=== PATIENT | female | born 1955 | race Caucasian/White ===

== ENCOUNTER 2018-10-15 14:05 | Emergency (ER) | payer OTHER ==
[2018-10-15] MEDS ORDERED: IBUPROFEN 400 MG TABLET (FP) PO ONE ×2 (14:32→14:34)
[2018-10-15 14:33] VITALS: BP 174/86; PULSE 94; TEMP 99.1; BMI 26.2
--- NOTE | 2018-10-15 15:52 | PDOC ---
Documentation entered by Susana Julian SCRIBE, acting as scribe for Janine Dumont MD. Janine Dumont MD: This documentation has been prepared by the scribeEliel Natalie, SCRIBE, under my direction and personally reviewed by me in its entirety. I confirm that the documentation accurately reflects all work, treatment, procedures, and medical decision making performed by me. History of Present Illness - General Chief Complaint: Back Pain Stated Complaint: BACK PAIN Time Seen by Provider: 10/15/18 14:26 History Source: Patient, Family Exam Limitations: No Limitations - History of Present Illness Initial Comments: 10/15/18 14:36 The patient is a 62-year-old female, with no past medical history, who presents to the ED with 2 days of progressively worsening LT-sided lower back pain. The patient states that the pain began after picking up a child. She describes the pain as pinching in sensation with radiation down her LT leg. The patient decided to report to the ED today because her pain worsened and she is no longer able to apply pressure to her LT foot due to the pain. She has never experienced this pain in the past. She reports taking Motrin 400 mg at 8AM today with no relief of her symptoms. The patient denies any fevers, chills, nausea, vomiting, diarrhea, constipation , or abdominal pain. Denies any chest pain, palpitations, or shortness of breath. Denies any headache, weakness, dizziness, lightheadedness, or changes in strength or sensation. Allergies: NKA Past History - Past Medical History Allergies/Adverse Reactions: Allergies Allergy/AdvReac Type Severity Reaction Status Date / Time No Known Allergies Allergy Verified 10/15/18 14:13 Home Medications: Ambulatory Orders Ibuprofen [Advil -] 400 mg PO ONCE 10/15/18 Ibuprofen [Ibu] 800 mg PO TID PRN #30 tablet 10/15/18 COPD: No - Suicide/Smoking/Psychosocial Hx Smoking History: Never smoked Hx Alcohol Use: No Drug/Substance Use Hx: No Review of Systems - Review of Systems Able to Perform ROS?: Yes Comments:: 10/15/18 14:37 GENERAL/CONSTITUTIONAL: No fever or chills. No weakness. HEAD, EYES, EARS, NOSE AND THROAT: No change in vision. No ear pain or discharge. No sore throat. CARDIOVASCULAR: No chest pain or shortness of breath. RESPIRATORY: No cough, wheezing, or hemoptysis. GASTROINTESTINAL: No nausea, vomiting, diarrhea or constipation. GENITOURINARY: No dysuria, frequency, or change in urination. MUSCULOSKELETAL: (+)Back pain. No joint swelling or pain. No neck pain. SKIN: No rash NEUROLOGIC: No headache, vertigo, loss of consciousness, or change in strength/ sensation. ENDOCRINE: No increased thirst. No abnormal weight change. HEMATOLOGIC/LYMPHATIC: No anemia, easy bleeding, or history of blood clots. ALLERGIC/IMMUNOLOGIC: No hives or skin allergy. *Physical Exam - Vital Signs Last Vital Signs Temp Pulse Resp BP Pulse Ox 99.1 F 94 H 16 174/86 H 100 10/15/18 14:13 10/15/18 14:13 10/15/18 14:13 10/15/18 14:13 10/15/18 14:13 - Physical Exam Comments: 10/15/18 14:38 GENERAL: Awake, alert, and fully oriented, in no acute distress HEAD: Normocephalic, atraumatic. EYES: PERRLA, EOMI, sclera anicteric, conjunctiva clear ENT: Auricles normal inspection, hearing grossly normal, nares patent, oropharynx clear without exudates. Moist mucosa NECK: Normal ROM, supple, no lymphadenopathy, JVD, or masses LUNGS: Breath sounds equal, clear to auscultation bilaterally. No wheezes, and no crackles HEART: Regular rate and rhythm, normal S1 and S2, no murmurs, rubs or gallops ABDOMEN: Soft, nontender, normoactive bowel sounds. No guarding, no rebound. No masses BACK: (+)Straight leg test. No spinous process tenderness. No ecchymosis. EXTREMITIES: Normal range of motion, no edema. No clubbing or cyanosis. No cords, erythema, or tenderness NEUROLOGICAL: Cranial nerves II through XII grossly intact. Normal speech. 5/5 strength plantar and dorsiflexion. 5/5 strength great toe flexion. Light touch sensation intact. SKIN: Warm, Dry, normal turgor, no rashes or lesions noted. ED Treatment Course - RADIOLOGY Radiology Studies Ordered: Category Date Time Status SPINE-LUMBAR SACRAL [RAD] Stat Radiology 10/15/18 14:32 Taken - Medications Given in the ED: ED Medications Discontinued Medications Generic Name Dose Route Start Last Admin Trade Name Kalie PRN Reason Stop Dose Admin Ibuprofen 800 mg 10/15/18 14:32 10/15/18 14:36 Motrin - PO 10/15/18 14:33 800 mg ONCE ONE Administration Medical Decision Making - Medical Decision Making 10/15/18 14:58 pt presents to the ED complaining of atraumatic lower back pain radiating down the L leg consistent with sciatica. Will check xray to rule out lytic lesion or fracture, give pain control and reasses. 10/15/18 15:17 pain feels improved after motrin, xray is negative for acute pathology. will discharge home with rx for motrin and instructions to return for worsening symptoms. *DC/Admit/Observation/Transfer Diagnosis at time of Disposition: Sciatica Qualifiers: Laterality: left Qualified Code(s): M54.32 - Sciatica, left side - Discharge Dispostion Disposition: HOME Condition at time of disposition: Good Decision to Admit order: No - Referrals - Patient Instructions Printed Discharge Instructions: DI for Back Pain With Sciatica Additional Instructions: you came to the Ed for back pain radiating down your leg, which is most likely caused by sciatica. You should return to the ED for severe pain, weakness or numbness in your legs, loss of control of your bowels or your bladder, pain with fever, other new or worsening symptom. Make sure that you follow up with your doctor on Tuesday. - Post Discharge Activity
== END 2018-10-15 15:27 | disposition home or self-care (01) ==
LOC: FER 14:05
DX: M54.32 Sciatica, left side (principal)
CPT/HCPCS: 72100-TC-FY; 99282-25